=== PATIENT | male | born 1980 | race Caucasian/White ===

== ENCOUNTER 2019-03-31 19:28 | Emergency (ER) | payer BC ==
[2019-03-31 19:48] VITALS: O2SAT 98
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
[2019-03-31 20:48] VITALS: BP 157/102; PULSE 78
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
== END 2019-03-31 20:55 | disposition home or self-care (01) ==
LOC: ED 19:28
DX: S02.2XXA Fracture of nasal bones, initial encounter for closed fracture (principal); S50.311A Abrasion of right elbow, initial encounter; S50.01XA Contusion of right elbow, initial encounter; Y04.0XXA Assault by unarmed brawl or fight, initial encounter; I10 Essential (primary) hypertension
CPT/HCPCS: 70486; 72125; 73080; 99283

== ENCOUNTER 2022-10-30 10:32 | Emergency (ER) | payer BC ==
[2022-10-30 10:44] VITALS: BP 168/104; PULSE 99; RESP 22; TEMP 98.2; O2SAT 98
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
[2022-10-30] MEDS ORDERED: Adacel Vial IM ONE ×2 (11:02→11:04)
== END 2022-10-30 11:12 | disposition home or self-care (01) ==
LOC: ED 10:32
DX: S51.812A Laceration without foreign body of left forearm, initial encounter (principal); W26.0XXA Contact with knife, initial encounter; Z28.310 Unvaccinated for COVID-19; Z23 Encounter for immunization
CPT/HCPCS: 12002; 90471; 90715; 99282